=== PATIENT | female | born 1975 | race Caucasian/White ===

== ENCOUNTER 2016-07-05 11:11 | Emergency (ER) | payer MEDICAID ==
[~2016-07-05] VITALS: Ht 177.8 cm; Wt 77.2 kg
[2016-07-05 11:13] VITALS: BP 144/94
== END 2016-07-05 16:05 | disposition left against medical advice (07) ==
LOC: ED 15:59
DX: M79.602 Pain in left arm (principal); Z53.21 Procedure and treatment not carried out due to patient leaving prior to being seen by health care provider

== ENCOUNTER 2016-07-07 04:03 | Emergency (ER) | payer MEDICAID ==
[~2016-07-07] VITALS: Ht 177.8 cm; Wt 81.2 kg
[2016-07-07 04:05] VITALS: BP 126/78
== END 2016-07-07 05:37 | disposition home or self-care (01) ==
LOC: ED 05:31
DX: T19.2XXA Foreign body in vulva and vagina, initial encounter (principal); M79.5 Residual foreign body in soft tissue; Z97.5 Presence of (intrauterine) contraceptive device; X58.XXXA Exposure to other specified factors, initial encounter; Y93.89 Activity, other specified; Y99.8 Other external cause status; Y92.89 Other specified places as the place of occurrence of the external cause
CPT/HCPCS: 99284

== ENCOUNTER → 2020-01-22 | Outpatient (CLI) | payer MEDICAID | END | disposition home or self-care (01) | LOC: CFH 13:00 | PROVIDERS: ATTEND Physician Assistant Surgical | DX: S52.572A Other intraarticular fracture of lower end of left radius, initial encounter for closed fracture (principal); S62.605A Fracture of unspecified phalanx of left ring finger, initial encounter for closed fracture; X58.XXXA Exposure to other specified factors, initial encounter; Y93.89 Activity, other specified; Y92.89 Other specified places as the place of occurrence of the external cause; Y99.8 Other external cause status ==